=== PATIENT | male | born 1975 | race Caucasian/White ===

== ENCOUNTER 2019-01-09 10:09 | Emergency (ER) | payer OTHER ==
[2019-01-09 10:23] VITALS: TEMP 98.2
--- NOTE | 2019-01-09 10:53 | ED ---
Lower Extremity Injury HPI - General Chief Complaint: Extremity Injury, Lower Stated Complaint: leg injury-[facility] Time Seen by Provider: 01/09/19 10:28 Source: patient Mode of arrival: wheelchair - History of Present Illness Initial Comments: 43-year-old male presenting today for chief complaint of left calf pain. Patient states just prior to arrival he was running after a person while at work. He states he changed direction and felt a pop in his left calf. Patient states he difficulty ambulating secondary to pain following the injury. Patient has numbness tingling loss sensation. Patient denies pain at the knee or ankle. Patient has rolling injury to head or neck. Remaining review of system negative, Patient denies any recent fever, chills, shortness of breath, chest pain, back pain, abdominal pain, nausea or vomiting, numbness or tingling, dysuria or hematuria, constipation or diarrhea, headaches or visual changes, or any other complaints. Patient denies any calf pain prior to this incident. - Related Data Home Medications Medication Instructions Recorded Confirmed No Known Home Medications 01/09/19 01/09/19 Allergies Allergy/AdvReac Type Severity Reaction Status Date / Time No Known Allergies Allergy Verified 01/09/19 10:35 Review of Systems ROS Statement: Those systems with pertinent positive or pertinent negative responses have been documented in the HPI. ROS Other: All systems not noted in ROS Statement are negative. Past Medical History Past Medical History: GERD/Reflux Additional Past Medical History / Comment(s): having pressure and pain chest area,has had reflux since age 14 approx. History of Any Multi-Drug Resistant Organisms: None Reported Past Surgical History: No Surgical Hx Reported Additional Past Surgical History / Comment(s): has had a procedure with anestheia but unable to recall exact procedure Past Anesthesia/Blood Transfusion Reactions: No Reported Reaction Past Psychological History: No Psychological Hx Reported Smoking Status: Never smoker Past Alcohol Use History: Rare Past Drug Use History: None Reported - Past Family History Mother Family Medical History: No Reported History General Exam - General Exam Comments Initial Comments: General: The patient is awake and alert, in no distress, and does not appear acutely ill. Eye: Pupils are equal, round and reactive to light, extra-ocular movements are intact. No nystagmus. There is normal conjunctiva bilaterally. No signs of icterus. Ears, nose, mouth and throat: There are moist mucous membranes and no oral lesions. Cardiovascular: There is a regular rate and rhythm. No murmur, rub or gallop is appreciated. Respiratory: Lungs are clear to auscultation, respirations are non-labored, breath sounds are equal. No wheezes, stridor, rales, or rhonchi. Musculoskeletal: Normal ROM, no tenderness of the right LE, patient admits to tenderness with dorsal and plantar flexion of the left foot in the mid calf region. Tendon to palpation mid to superior posterior calf. Strength 5/5 of the LE b/l. Sensation intact both proximal and distal to injury site equal comparison with the unaffected extremity. Dp pulses equal bilaterally 2+. No palpable masses in the left posterior calf. Romero sign intact of the left LE. Neurological: A&O x 3. CN II-XII intact, There are no obvious motor or sensory deficits. Coordination appears grossly intact. Speech is normal. Skin: Skin is warm and dry and no rashes or lesions are noted. Psychiatric: Cooperative, appropriate mood & affect, normal judgment. Course Vital Signs 01/09/19 10:19 Temperature 98.2 F Pulse Rate 79 Respiratory 18 Rate Blood Pressure 152/78 O2 Sat by Pulse 99 Oximetry Medical Decision Making - Medical Decision Making 43-year-old male presenting today for chief complaint of left calf pain. History concerning for tendon injury. Romero sign intact. No bogginess of the Achilles. Imaging studies revealed no acute osseous injury. No palpable muscle belly in posterior calf. Most likely partial tear, no obvious achilles injury, possible gastrocnemius or soleus. Pt neurovascularly intact. Placed in a posterior mold splint with dorsiflexion given prescription for crutches as well as nonlabor instruction to orthopedic surgery follow-up. I do not recommend return to work until orthopedic clearance. Patient verbalizes understanding. Patient discharged appearing well. Pt is aware of return parameters as discussed as well as importance of f/u with orthopedic surgery. Case discussed with her provider Dr. Infante was agreeable patient plan of care and discharge. Disposition Clinical Impression: Tendon injury, Pain of left calf Disposition: HOME SELF-CARE Condition: Good Instructions (If sedation given, give patient instructions): Tendon Rupture (ED) Additional Instructions: Please use medication as discussed. Please follow-up with orthopedic surgery in the next 1-2 days. Please return to emergency room if the symptoms increase or worsen or for any other concerns. Is patient prescribed a controlled substance at d/c from ED?: No Referrals: Charlotte Soliman DO [Primary Care Provider] - 1-2 days Michael Quiroga MD [STAFF PHYSICIAN] - 1-2 days Time of Disposition: 10:53
--- NOTE | 2019-01-09 10:59 | XR ---
EXAMINATION TYPE: XR tibia fibula LT DATE OF EXAM: 01/09/2019 COMPARISON: NONE HISTORY: TECHNIQUE: Two views are submitted. FINDINGS: The osseous structures are intact. The joint spaces are preserved. IMPRESSION: 1. No acute osseous abnormality.
[2019-01-09] MEDS ORDERED: ACET/COD 300 MG/30 MG STARTER PACK 6 TAB BTL PO STA (11:50)
[2019-01-09 11:59] VITALS: BP 143/81; PULSE 88; RESP 16
== END 2019-01-09 11:54 | disposition home or self-care (01) ==
LOC: EC 10:09
DX: S89.92XA Unspecified injury of left lower leg, initial encounter (principal); X50.9XXA Other and unspecified overexertion or strenuous movements or postures, initial encounter; Y93.02 Activity, running; Y99.0 Civilian activity done for income or pay
CPT/HCPCS: 29505; 99283

== ENCOUNTER → 2019-10-24 | Outpatient (CLI) | payer OTHER ==
--- NOTE | 2019-10-24 23:09 | MR ---
EXAMINATION TYPE: MR lumbar spine wo con DATE OF EXAM: 10/24/2019 COMPARISON: NONE HISTORY: Low back TECHNIQUE: T1 and T2 axial and sagittal images of the lumbar spine are submitted. FINDINGS: There is no abnormal signal seen within the visualized spinal cord or paraspinal soft tissu es. At L1-2 there is no disc herniation, degenerative disc disease, foraminal encroachment, or canal sten osis At L2-3 there is no disc herniation, degenerative disc disease, foraminal encroachment, or canal sten osis. Mild hypertrophic change of the facets. Vertebral body hemangioma L2. At L3-4 there is no disc herniation, degenerative disc disease, foraminal encroachment, or canal sten osis. Mild hypertrophic change of the facets. Tiny vertebral hemangioma L4. At L4-5 there is broad-based central disc herniation with mild effacement of thecal sac. This likely encroaches upon the exiting right nerve root. Mild hypertrophic change facets. No foraminal encroachm ent. At L5-S1 there is right paracentral disc protrusion or tiny herniation with mild effacement of thecal sac. No definite nerve root contact or foraminal encroachment IMPRESSION: 1. At L4-L5 there is broad-based disc herniation with mild effacement of thecal sac and likely encroa ches upon the exiting right nerve root. 2. Small right paracentral disc protrusion or tiny herniation L5-S1 with mild thecal sac effacement b ut no nerve root contact or foraminal encroachment.
== END | disposition home or self-care (01) ==
LOC: RADMRIMAIN 19:58
PROVIDERS: ATTEND Family Medicine
DX: M51.26 Other intervertebral disc displacement, lumbar region (principal)
CPT/HCPCS: 72148